=== PATIENT | female | born 1965 | race Caucasian/White ===

== ENCOUNTER 2019-05-04 21:50 | Emergency (ER) | payer BC ==
[~2019-05-04] VITALS: Ht 170.2 cm; Wt 57.6 kg
--- NOTE | 2019-05-04 22:05 | NUR ---
BIB [facility] from home for c/o sob. A/Ox4. Speech is clear, speaks in complete sentences. SOB started today, states that she tried using her rescue inhaler but has not been effective. No distress, states that she has had a little diarrhea. Patient in bed at lowest position, sr upx2, call light within reach. Fall precautions implemented per protocol.
--- NOTE | 2019-05-04 22:11 | NUR ---
ERMD at bedside for MSE
[2019-05-04 22:14] LABS: BASOPHILS % (AUTO) 0.7 % (0.0-2.0); EOSINOPHILS % (AUTO) 0.8 % (0.0-7.0); HEMATOCRIT 37.7 % (31.2-41.9); HEMOGLOBIN 12.8 g/dL (10.9-14.3); LYMPHOCYTES # (AUTO) 1.2 K/uL (20.0-40.0); LYMPHOCYTES % (AUTO) 22.7 % (20.5-51.5); MEAN CORPUSCULAR HEMOGLOBIN 30.9 uug (24.7-32.8); MEAN CORPUSCULAR HGB CONC 34 g/dL (32.3-35.6); MEAN CORPUSCULAR VOLUME 90.7 fL (75.5-95.3); MONOCYTES # (AUTO) 0.4 K/uL (2.0-10.0); MONOCYTES % (AUTO) 7.8 % (0.0-11.0); NEUTROPHILS # (AUTO) 3.5 K/uL (1.8-8.9); PLATELET COUNT (AUTO) 182 K/uL (179-408); RED BLOOD CELL COUNT(AUTO) 4.15 MIL/uL (3.63-4.92); WHITE BLOOD COUNT (AUTO) 5.2 K/uL (3.8-11.8)
[2019-05-04 22:21] LABS: CREATININE 0.9 mg/dL (0.6-1.3); POTASSIUM 3.8 mmol/L (3.5-5.1)
[2019-05-04 22:47] LABS: BILIRUBIN,DIRECT 0.2 mg/dL (0.0-0.2); BILIRUBIN,TOTAL 0.6 mg/dL (0.2-1.0); TOTAL PROTEIN, SERUM 7.2 g/dL (6.4-8.2)
[2019-05-04] MEDS ORDERED: IOHEXOL 350 100 ML INFUS..BTL ONE (22:56)
[2019-05-04] MEDS ORDERED: IV NORMAL SALINE 250 ML IV ONE (22:56)
[2019-05-04] MEDS ORDERED: SWABABLE VALVE TRANSFER SET EA MC ONE (22:56)
[2019-05-04] MEDS ORDERED: LORAZEPAM 2 MG/1 ML VIAL ONE (23:12)
[2019-05-04] MEDS ORDERED: LORAZEPAM 2 MG/1 ML VIAL IV ONE (23:15)
[2019-05-05] MEDS ORDERED: LORAZEPAM 2 MG/1 ML VIAL IV ONE (00:30)
[2019-05-05] MEDS ORDERED: LORAZEPAM 2 MG/1 ML VIAL ONE (00:35)
[2019-05-05] MEDS ORDERED: IPRATROPIUM BROMIDE 0.5 MG/2.5 ML NEBU ONE (00:44)
[2019-05-05] MEDS ORDERED: ALBUTEROL SULFATE 2.5 MG/3 ML NEBU ONE (00:44)
[2019-05-05] MEDS ORDERED: methylPREDNISolone SOD SUCC 125 MG/2 ML VIAL IV ONE (00:45)
[2019-05-05] MEDS ORDERED: ALBUTEROL SULFATE 2.5 MG/3 ML NEBU NEB ONE (00:45)
[2019-05-05] MEDS ORDERED: IPRATROPIUM BROMIDE 0.5 MG/2.5 ML NEBU NEB ONE (00:45)
[2019-05-05] MEDS ORDERED: methylPREDNISolone SOD SUCC 125 MG/2 ML VIAL ONE (00:48)
--- NOTE | 2019-05-05 01:11 | NUR ---
Provided patient with brennen, 2 relatives at bedside accompanying patient. RIYA
[2019-05-05] MEDS: MAGNESIUM SULFATE/D5W 100 ML IV SCH ×2 (01:45→02:15)
[2019-05-05] MEDS ORDERED: MAGNESIUM SULFATE/D5W 100 ML ONE ×2 (01:50→02:05)
--- NOTE | 2019-05-05 03:03 | NUR ---
IV removed. Catheter intact and site benign. Pressure and 4x4 gauze applied to site. No bleeding noted.
--- NOTE | 2019-05-05 03:25 | NUR ---
Patient discharged to home in stable conditon. Written and verbal after care instructions given. Patient verbalizes understanding of instructions. Patient ambulated with stable gait.
[2019-05-05 03:28] VITALS: BP 130/78
== END 2019-05-05 03:30 | disposition home or self-care (01) ==
LOC: ER 21:50
DX: S09.90XA Unspecified injury of head, initial encounter (principal); R06.00 Dyspnea, unspecified; R00.0 Tachycardia, unspecified; F15.93 Other stimulant use, unspecified with withdrawal; F10.129 Alcohol abuse with intoxication, unspecified; J45.909 Unspecified asthma, uncomplicated; F41.9 Anxiety disorder, unspecified; Z88.0 Allergy status to penicillin; W01.198A Fall on same level from slipping, tripping and stumbling with subsequent striking against other object, initial encounter; Y93.89 Activity, other specified; Y92.89 Other specified places as the place of occurrence of the external cause; Y99.8 Other external cause status; Y90.7 Blood alcohol level of 200-239 mg/100 ml
CPT/HCPCS: 36415; 70450; 71045; 71275; 72125; 80048; 80076; 83880; 84484; 85025; 85379; 85610; 93005; 94640; 96365; 96366; 96375; 96376; 99284; G0480; J2060 ×2; J2930; J3475 ×2; Q9967; 70030-TC; A4663; J3590; J7050

== ENCOUNTER 2021-12-31 12:32 | Emergency (ER) | payer BC, OTHER ==
[~2021-12-31] VITALS: Ht 170.2 cm; Wt 68.0 kg
[2021-12-31] MEDS ORDERED: IV NORMAL SALINE 1000 ML BAG IV ONE (12:45)
[2021-12-31] MEDS ORDERED: LORAZEPAM 2 MG/1 ML VIAL IV ONE (12:45)
[2021-12-31] MEDS ORDERED: LORAZEPAM 2 MG/1 ML VIAL ONE (12:56)
[2021-12-31 13:12] LABS: HEMATOCRIT 43.2 % (31.2-41.9); MEAN CORPUSCULAR HEMOGLOBIN 31.7 uug (24.7-32.8); MEAN CORPUSCULAR VOLUME 93.6 fL (75.5-95.3); PLATELET COUNT (AUTO) 349 K/uL (179-408)
[2021-12-31 13:18] LABS: CREATININE 0.8 mg/dL (0.6-1.3); POTASSIUM 4.3 mmol/L (3.5-5.1)
[2021-12-31 13:24] LABS: BILIRUBIN,DIRECT 0.2 mg/dL (0.0-0.2); BILIRUBIN,TOTAL 0.6 mg/dL (0.2-1.0); TOTAL PROTEIN, SERUM 7.7 g/dL (6.4-8.2)
[2021-12-31 13:43] LABS: THYROID STIMULATING HORMONE 0.369 mIU/mL (0.358-3.740)
--- NOTE | 2021-12-31 13:57 | NUR ---
Pt still nervous and moving around, also keeps bending arm w/IV, informed. Admin PO ativan and taped short arm board to pt's arm so IV will flow.
[2021-12-31] MEDS ORDERED: LORAZEPAM 0.5 MG TABLET PO ONE ×2 (14:00→14:45)
[2021-12-31] MEDS ORDERED: LORAZEPAM 0.5 MG TABLET ONE ×2 (14:02→14:55)
[2021-12-31] MEDS ORDERED: LORA2TAB95 PO ×2 (14:42→15:14)
--- NOTE | 2021-12-31 15:25 | NUR ---
Removed IV intact, site okay, bandaged. Gave pt RX and d/c instructions, pt verbalized understanding.
[2021-12-31 15:37] VITALS: BP 109/59
[2022-01-01] MEDS ORDERED: CEFEPIME HCL 1 G VIAL ONE (02:36)
== END 2021-12-31 15:39 | disposition home or self-care (01) ==
LOC: ER 12:32
DX: F10.129 Alcohol abuse with intoxication, unspecified (principal); Y90.7 Blood alcohol level of 200-239 mg/100 ml; F41.9 Anxiety disorder, unspecified; D72.829 Elevated white blood cell count, unspecified; R00.0 Tachycardia, unspecified; R03.0 Elevated blood-pressure reading, without diagnosis of hypertension
CPT/HCPCS: 73660; 80048; 80076; 80307; 80320; 84443; 85025; 93005; 96361; 96374; 99285; J2060; A4663; G0480; J0692; J7030

== ENCOUNTER 2023-04-09 13:27 | Emergency (ER) | payer OTHER ==
[~2023-04-09 13:27] MED LIST: LORA2TAB95 PO
--- NOTE | 2023-04-09 13:35 | NUR ---
PT WAS CALLED TO TRIAGE AREA . NO ANSWER.
--- NOTE | 2023-04-09 13:46 | NUR ---
PT LEFT WAITING ROOM.
== END 2023-04-09 13:48 | disposition left against medical advice (07) ==
LOC: ER 13:29
DX: Z53.21 Procedure and treatment not carried out due to patient leaving prior to being seen by health care provider (principal)